=== PATIENT | male | born 1995 | race Caucasian/White ===

== ENCOUNTER 2022-12-21 12:59 | Emergency (ER) | payer BC ==
[2022-12-21 13:29] VITALS: BP 134/83; PULSE 94
[2022-12-21] MEDS ORDERED: Diphtheria,Pertussis(Acell),Tetanus Vaccine 0.5 ML Syringe IM ONE (15:53)
== END 2022-12-21 16:20 | disposition home or self-care (01) ==
LOC: MW.ED 12:59
DX: S62.642A Nondisplaced fracture of proximal phalanx of right middle finger, initial encounter for closed fracture (principal); Z23 Encounter for immunization; W22.09XA Striking against other stationary object, initial encounter
CPT/HCPCS: 29130; 73130-26-RT; 73130-RT; 90471; 90715; 99283-25

== ENCOUNTER 2023-12-25 06:53 | Emergency (ER) | payer BC ==
[2023-12-25 07:05] VITALS: BP 132/85
[2023-12-25] MEDS: Sodium Chloride 0.9% 1,000 ML IV ONE (07:24)
[2023-12-25] MEDS: Ondansetron 4 MG/2 ML SDV IVPUSH ONE (07:24)
[2023-12-25] MEDS: Aluminum Hydroxide/Magnesium Hydroxide/Simethicone XS Susp 30 ML Cup PO ONE (07:24)
[2023-12-25] MEDS: Famotidine 20 MG/2 ML SDV IVPUSH ONE (07:24)
[2023-12-25] MEDS: Sodium Chloride 0.9% 2.5 ML Syringe FLUSH PRN (07:25)
[2023-12-25] MEDS: Sodium Chloride 0.9% 10 ML Syringe FLUSH PRN (07:25)
[2023-12-25 07:32] LABS: BASOPHILS ABSOLUTE AUTO 0.05 K/uL (0.00-0.20); BASOPHILS PERCENT AUTO 0.5 % (0.0-1.0); EOSINOPHILS ABSOLUTE AUTO 0.17 K/uL (0.00-0.45); EOSINOPHILS PERCENT AUTO 1.8 % (0.0-6.0); HEMATOCRIT 46.9 % (42.0-52.0); HEMOGLOBIN 15.7 g/dL (14.0-18.0); IMMATURE GRAN ABSOLUTE AUTO 0.03 K/uL (0.00-0.05); IMMATURE GRAN PERCENT AUTO 0.3 % (0.0-0.4); LYMPHOCYTES ABSOLUTE AUTO 1.81 K/uL (1.00-4.80); LYMPHOCYTES PERCENT AUTO 19.2 % (24.0-44.0); MEAN CORPUSCULAR HEMOGLOBIN 30.3 pg (28.0-32.0); MEAN CORPUSCULAR HGB CONC 33.5 g/dL (32.0-36.0); MEAN CORPUSCULAR VOLUME 90.5 fL (83.0-99.0); MEAN PLATELET VOLUME 9.7 fL (9.4-12.4); MONOCYTES ABSOLUTE AUTO 1.27 K/uL (0.00-0.80); MONOCYTES PERCENT AUTO 13.5 % (0.0-8.0); NEUTROPHILS ABSOLUTE AUTO 6.09 K/uL (1.80-7.70); NEUTROPHILS PERCENT AUTO 64.7 % (41.0-71.0); PLATELET COUNT,PLT 318 K/uL (150-400); RED BLOOD CELL COUNT 5.18 M/uL (4.52-5.90); WHITE BLOOD CELL COUNT,WBC 9.42 K/uL (3.9-11.3)
[2023-12-25] MEDS: Loperamide 2 MG Cap PO ONE (07:40)
[2023-12-25 08:01] LABS: A/G RATIO 0.8 (0.9-1.6); ALBUMIN 3.7 g/dL (3.4-5.0); BILIRUBIN TOTAL 0.3 mg/dL (0.2-1.0); CALCIUM 9.6 mg/dL (8.5-10.1); CARBON DIOXIDE,CO2 26.9 mmol/L (21.0-32.0); EST CRCL DRUG DOSING (CG) 118.56 mL/min; POTASSIUM,K 4.1 mmol/L (3.5-5.1); PROTEIN TOTAL,TP 8.4 g/dL (6.4-8.2)
[2023-12-25 08:22] VITALS: PULSE 89
== END 2023-12-25 08:24 | disposition home or self-care (01) ==
LOC: MW.ED 06:53
DX: R19.7 Diarrhea, unspecified (principal); Z79.899 Other long term (current) drug therapy
CPT/HCPCS: 36415; 80053; 83690; 85025; 96361; 96374; 96375; 99284; A9270; J2405; J3490; J7030

== ENCOUNTER 2024-03-05 10:15 | Emergency (ER) | payer BC, OTHER ==
[2024-03-05] MEDS ORDERED: Acetaminophen/HYDROcodone 325-5 MG Tab PO ONE (12:09)
[2024-03-05] MEDS ORDERED: Ketorolac 30 MG/ML SDV IVPUSH ONE (12:09)
[2024-03-05] MEDS: ceFAZolin 2 GM in Sodium Chloride 0.9% 50 ML IV ONE (12:14)
[2024-03-05] MEDS: ceFAZolin 1 GM Vial IM ONE ×2 (12:14→12:33)
[2024-03-05] MEDS: Ketorolac 30 MG/ML SDV IM ONE (12:32)
[2024-03-05] MEDS: fentaNYL 50 MCG/ML SDV IM ONE (12:33)
[2024-03-05 12:51] VITALS: BP 139/87; PULSE 102
== END 2024-03-05 13:00 ==
LOC: MW.ED 10:15
DX: S62.610B Displaced fracture of proximal phalanx of right index finger, initial encounter for open fracture (principal); F17.210 Nicotine dependence, cigarettes, uncomplicated; Z75.8 Other problems related to medical facilities and other health care; Z86.19 Personal history of other infectious and parasitic diseases; W23.1XXA Caught, crushed, jammed, or pinched between stationary objects, initial encounter
CPT/HCPCS: 29130; 73130; 96372; 99283; J0690; J1885; J3010; 99284